=== PATIENT | male | born 1950 | race African-American/Black ===

== ENCOUNTER 2022-05-14 12:14 | Emergency (ER) | payer MEDICAID, MEDICARE ==
[~2022-05-14] VITALS: Ht 175.3 cm; Wt 118.0 kg
[2022-05-14 12:54] LABS: BG CARBOXYHEMOGLOBIN 0.5 % (0.5-1.5); BG DEOXYHEMOGLOBIN 6.8 % (0.0-5.0); BG FRACTION INSPIRED OXYGEN 21; BG HCO3 ACT 22.4 mmol/L (22.0-26.0); BG METHEMOGLOBIN 0.3 % (0.0-1.5); BG OXYGEN SATURATION 93.1 % (92.0-98.5); BG OXYHEMOGLOBIN 92.4 % (94.0-97.0); BG PCO2 37.3 mmHg (35.0-45.0); BG PH 7.396 (7.350-7.450); BG PO2 67.4 mmHg (75.0-100.0); BG SAMPLE SITE RIGHT RADIAL; BG TOTAL HEMOGLOBIN 16.7 g/dL (12.0-18.0); BG VENT MODE ROOM AIR
[2022-05-14 13:34] LABS: BASOPHILS % 0.4 % (0.0-2.0); EOSINOPHILS % 1.3 % (0.0-5.0); HEMOGLOBIN. 15.9 g/dL (14.0-18.0); LYMPHOCYTES % 32.6 % (20.0-50.0); MEAN CORPUSCULAR HEMOGLOBIN 29.6 pg (28.0-32.0); MEAN PLATELET VOLUME 8.2 fl (7.4-10.4); MONOCYTES % 9.2 % (2.0-8.0); NEUTROPHILS % 56.5 % (40.0-76.0); PLATELET 281 x1000/uL (130-400); RED BLOOD CELL COUNT 5.39 mill/uL (4.7-6.1); RED CELL DISTRIBUTION WIDTH 14.2 % (11.6-14.6)
[2022-05-14 13:43] LABS: CHLORIDE 108 mEq/L (98-107)
[2022-05-14 16:41] VITALS: BP 156/95
== END 2022-05-14 16:44 | disposition home or self-care (01) ==
LOC: ER 12:14
DX: T65.91XA Toxic effect of unspecified substance, accidental (unintentional), initial encounter (principal); I10 Essential (primary) hypertension; Y92.9 Unspecified place or not applicable
CPT/HCPCS: 36415; 36600; 71045; 80053; 82375; 82805; 83880; 85025; 93005; 99285

== ENCOUNTER 2022-07-07 20:05 | Emergency (ER) | payer MEDICARE, MEDICAID ==
[~2022-07-07] VITALS: Ht 182.9 cm; Wt 91.0 kg
[2022-07-07 21:01] LABS: CHLORIDE 109 mEq/L (98-107)
[2022-07-07 21:10] LABS: BASOPHILS % 0.5 % (0.0-2.0); EOSINOPHILS % 1.1 % (0.0-5.0); HEMATOCRIT. 43.6 % (42.0-52.0); HEMOGLOBIN. 14.6 g/dL (14.0-18.0); LYMPHOCYTES % 30.5 % (20.0-50.0); MEAN CORPUSCULAR HEMOGLOBIN 29.6 pg (28.0-32.0); MEAN CORPUSCULAR VOLUME 88.4 fL (80.0-94.0); MEAN PLATELET VOLUME 7.6 fl (7.4-10.4); MONOCYTES % 10.5 % (2.0-8.0); NEUTROPHILS % 57.4 % (40.0-76.0); PLATELET 299 x1000/uL (130-400); RED BLOOD CELL COUNT 4.93 mill/uL (4.7-6.1); RED CELL DISTRIBUTION WIDTH 14.3 % (11.6-14.6)
[2022-07-07 21:17] LABS: CREATINE KINASE 133 IU/L (39-308); ETHANOL BLOOD < 10 mg/dL
[2022-07-07 23:51] LABS: CLARITY URINE CLEAR (CLEAR); COLOR URINE DARK YELLOW (YELLOW); KETONES URINE TRACE (NEGATIVE); LEUKOCYTE ESTERASE URINE NEGATIVE (NEGATIVE); NITRITE URINE NEGATIVE (NEGATIVE); OCCULT BLOOD URINE NEGATIVE (NEGATIVE); PROTEIN URINE TRACE (NEGATIVE); SPECIFIC GRAVITY URINE 1.028 (1.005-1.030)
[2022-07-08 00:04] LABS: *AMPHETAMINES SCREEN URINE NEGATIVE (NEGATIVE); *BARBITURATES SCREEN URINE NEGATIVE (NEGATIVE); *BENZODIAZEPINES SCREEN URINE NEGATIVE (NEGATIVE); *COCAINE SCREEN URINE NEGATIVE (NEGATIVE); CANNABINOID URINE SCREEN NEGATIVE (NEGATIVE); METHADONE URINE SCREEN NEGATIVE (NEGATIVE); OPIATES URINE SCREEN NEGATIVE (NEGATIVE); PHENCYCLIDINE URINE SCREEN NEGATIVE (NEGATIVE)
[2022-07-08] MEDS ORDERED: ACETAMINOPHEN 325MG TABLET PO ONE (00:15)
[2022-07-08 00:38] VITALS: BP 138/87
== END 2022-07-08 01:14 | disposition home or self-care (01) ==
LOC: ER 20:05
DX: R53.1 Weakness (principal); E11.9 Type 2 diabetes mellitus without complications; I10 Essential (primary) hypertension
CPT/HCPCS: 36415; 71045; 80053; 80305; 80307; 80320; 80329; 81003; 82140; 82550; 82962; 83605; 84443; 84484; 85025; 93005; 99285; G0480

== ENCOUNTER 2024-01-22 17:46 | Inpatient (IN) | payer MEDICARE, MEDICAID ==
[~2024-01-22] VITALS: Ht 172.7 cm; Wt 102.9 kg
[~2024-01-22 17:46] MED LIST: ASPI-1406 PO; ATOR40TA70 PO; CARV25TA47 PO; CELE-146 PO; DARU1TAB PO; DOLU50TA PO; ERGO1250 PO; GABA-1180 PO; GLIM2TAB30 PO; TAMS-11 PO; TRELEGY 200-62.5-25 PO
[2024-01-22] MEDS ORDERED: BENZONATATE 100MG CAPSULE PO PRN (18:15)
[2024-01-22] MEDS ORDERED: DEXTROSE 50% WATER 50ML SYRINGE IV PRN (18:15)
[2024-01-22] MEDS ORDERED: CLONIDINE 0.1MG TABLET PO PRN (18:15)
[2024-01-22] MEDS ORDERED: MAGNESIUM/ALUMINUM HYDROXIDE/SIMETHICONE 30ML UDC PO PRN (18:15)
[2024-01-22] MEDS ORDERED: GUAIFENESIN 200MG 200 MG TABLET PO PRN (18:15)
[2024-01-22] MEDS ORDERED: ONDANSETRON HCL 4MG/2ML INJ IV PRN (18:15)
[2024-01-22 18:42] VITALS: PULSE 78; RESP 18; TEMP 36.22512; O2SAT 98
[2024-01-22 19:00] VITALS: BP 98/74; PULSE 86; RESP 18; TEMP 36.7516
[2024-01-22 20:00] VITALS: BP 98/74; PULSE 86; RESP 18; TEMP 36.72516; O2SAT 99
[2024-01-22] MEDS: INSULIN LISPRO 100 UNITS/ML SUBCUT SCH (21:00)
[2024-01-22] MEDS: BLOOD SUGAR DIAGNOSTIC STRIP TEST SCH (21:00)
[2024-01-22] MEDS: CARVEDILOL 12.5MG TABLET PO SCH (21:00)
[2024-01-22] MEDS: DOCUSATE SODIUM 100MG CAPSULE PO SCH (22:15)
[2024-01-22] MEDS: ATORVASTATIN CALCIUM 40MG TABLET PO SCH (22:16)
[2024-01-22] MEDS: GABAPENTIN 300MG CAPSULE PO SCH (22:16)
[2024-01-22] MEDS: FAMOTIDINE 20MG TABLET PO SCH (22:16)
[2024-01-23 08:00] VITALS: BP 101/74; PULSE 85; RESP 20; TEMP 36.6696; O2SAT 95
[2024-01-23 08:18] LABS: BASOPHILS % 0.9 % (0.0-2.0); EOSINOPHILS % 2.7 % (0.0-5.0); HEMATOCRIT. 43.9 % (42.0-52.0); HEMOGLOBIN. 14.3 g/dL (14.0-18.0); LYMPHOCYTES % 32.7 % (20.0-50.0); MEAN CORPUSCULAR HEMOGLOBIN 29.4 pg (28.0-32.0); MEAN CORPUSCULAR HGB CONC 32.5 g/dL (31.0-37.0); MEAN CORPUSCULAR VOLUME 90.5 fL (80.0-94.0); MEAN PLATELET VOLUME 7.6 fl (7.4-10.4); MONOCYTES % 14.7 % (2.0-8.0); PLATELET 264 x1000/uL (130-400); RED BLOOD CELL COUNT 4.85 mill/uL (4.7-6.1); RED CELL DISTRIBUTION WIDTH 14.1 % (11.6-14.6); WHITE BLOOD COUNT 7.6 x1000/uL (4.5-11.0)
[2024-01-23 08:21] LABS: CHLORIDE 107 mEq/L (98-107); POTASSIUM 4.2 mEq/L (3.5-5.1); SODIUM 139 mEq/L (136-145)
[2024-01-23 08:24] LABS: CALCIUM 9.4 mg/dL (8.7-10.4); CARBON DIOXIDE 25 mEq/L (21-32)
[2024-01-23 08:29] LABS: CREATININE 1.1 mg/dL (0.6-1.3); GLUCOSE 114 mg/dL (70-105)
[2024-01-23 08:30] LABS: ALANINE AMINOTRANSFERASE 58 IU/L (10-49); ASPARTATE AMINOTRANSFERASE 36 IU/L (<34); UREA NITROGEN BLOOD 14 mg/dL (9-23)
[2024-01-23 08:32] LABS: BILIRUBIN TOTAL 0.5 mg/dL (0.1-1.0); PREALBUMIN 15.2 mg/dl (10.0-40.0); PROTEIN TOTAL 7.1 g/dL (6.0-8.3)
[2024-01-23] MEDS: ASPIRIN 81MG TABLET PO SCH (08:42)
[2024-01-23] MEDS: MAGNESIUM OXIDE 400MG TABLET PO SCH (08:44)
[2024-01-23] MEDS: ENOXAPARIN 40MG/0.4ML SYR SUBCUT SCH (08:44)
[2024-01-23] MEDS: LACTULOSE 20G/30ML UDC PO SCH (16:39)
[2024-01-23 19:54] VITALS: BP 119/78; PULSE 91; RESP 18; TEMP 36.22512; O2SAT 97
[2024-01-24 06:00] LABS: HEMATOCRIT. 42.9 % (42.0-52.0); HEMOGLOBIN. 14.3 g/dL (14.0-18.0); MEAN CORPUSCULAR HEMOGLOBIN 30.4 pg (28.0-32.0); MEAN CORPUSCULAR HGB CONC 33.4 g/dL (31.0-37.0); MEAN PLATELET VOLUME 7.9 fl (7.4-10.4); PLATELET 228 x1000/uL (130-400); RED BLOOD CELL COUNT 4.71 mill/uL (4.7-6.1); RED CELL DISTRIBUTION WIDTH 14.2 % (11.6-14.6); WHITE BLOOD COUNT 6.3 x1000/uL (4.5-11.0)
[2024-01-24 06:16] LABS: DIFFERENTIAL COMMENT 1
[2024-01-24 06:21] LABS: AMMONIA < 17 uMol/L (<32)
[2024-01-24 06:33] LABS: CHLORIDE 108 mEq/L (98-107); SODIUM 140 mEq/L (136-145)
[2024-01-24 06:34] LABS: CALCIUM 9.4 mg/dL (8.7-10.4); CARBON DIOXIDE 23 mEq/L (21-32)
[2024-01-24 06:39] LABS: CREATININE 1.1 mg/dL (0.6-1.3); GLUCOSE 105 mg/dL (70-105); IRON 82 ug/dL (65-175); UREA NITROGEN BLOOD 12 mg/dL (9-23)
[2024-01-24 06:41] LABS: ALANINE AMINOTRANSFERASE 58 IU/L (10-49); ASPARTATE AMINOTRANSFERASE 36 IU/L (<34); BILIRUBIN TOTAL 0.7 mg/dL (0.1-1.0); THYROID STIMULATING HORMONE 0.76 uIU/mL (0.55-4.78); TOTAL IRON BINDING CAPACITY 257 ug/dl (250-425)
[2024-01-24 06:42] LABS: PROTEIN TOTAL 7.1 g/dL (6.0-8.3)
[2024-01-24 06:43] LABS: FERRITIN 306 ng/mL (22-322); FOLIC ACID (FOLATE) SERUM 7.77 ng/mL (>5.38); VITAMIN B12 SERUM 914 pg/mL (211-911)
[2024-01-24 08:00] VITALS: BP 103/64; PULSE 91; RESP 20; TEMP 36.78072; O2SAT 96
[2024-01-24 16:23] LABS: PLATELET ESTIMATE NORMAL
[2024-01-24 20:00] VITALS: BP 102/77; PULSE 93; RESP 20; TEMP 36.78072; O2SAT 99
[2024-01-24] MEDS: CARVEDILOL 3.125 MG TABLET PO SCH (20:38)
[2024-01-25 08:00] VITALS: BP 105/82; PULSE 95; RESP 20; TEMP 37.05852; O2SAT 96
[2024-01-25] MEDS: FUROSEMIDE 40MG TABLET PO SCH (08:42)
[2024-01-25] MEDS: POTASSIUM CHLORIDE 10MEQ TABLET SR PO SCH (08:43)
[2024-01-25 12:20] LABS: HEMATOCRIT. 45.9 % (42.0-52.0); HEMOGLOBIN. 15.5 g/dL (14.0-18.0); MEAN CORPUSCULAR HEMOGLOBIN 30.8 pg (28.0-32.0); MEAN CORPUSCULAR HGB CONC 33.7 g/dL (31.0-37.0); MEAN CORPUSCULAR VOLUME 91.3 fL (80.0-94.0); MEAN PLATELET VOLUME 7.8 fl (7.4-10.4); PLATELET 239 x1000/uL (130-400); RED BLOOD CELL COUNT 5.03 mill/uL (4.7-6.1); RED CELL DISTRIBUTION WIDTH 13.8 % (11.6-14.6); WHITE BLOOD COUNT 5.5 x1000/uL (4.5-11.0)
[2024-01-25 12:23] LABS: DIFFERENTIAL COMMENT 1
[2024-01-25 12:35] LABS: CHLORIDE 106 mEq/L (98-107); POTASSIUM 4.2 mEq/L (3.5-5.1); SODIUM 138 mEq/L (136-145)
[2024-01-25 12:36] LABS: CARBON DIOXIDE 23 mEq/L (21-32)
[2024-01-25 12:37] LABS: CALCIUM 9.9 mg/dL (8.7-10.4)
[2024-01-25 12:41] LABS: CREATININE 1.1 mg/dL (0.6-1.3)
[2024-01-25 12:42] LABS: GLUCOSE 91 mg/dL (70-105); UREA NITROGEN BLOOD 13 mg/dL (9-23)
[2024-01-25] MEDS ORDERED: *PATIENT'S OWN MEDICATION STORAGE XX SCH (18:15)
[2024-01-25 20:00] VITALS: BP 108/73; PULSE 82; RESP 18; TEMP 37.00296; O2SAT 100
[2024-01-26 07:42] VITALS: BP 109/75; PULSE 97; PULSE 99; RESP 20; TEMP 36.00288; O2SAT 97
[2024-01-26] MEDS ORDERED: NON FORMULARY MED PO SCH ×2 (09:00)
[2024-01-26] MEDS: PREZCOBIX PO SCH (09:06)
[2024-01-26 11:17] LABS: HEMATOCRIT. 44.4 % (42.0-52.0); HEMOGLOBIN. 14.2 g/dL (14.0-18.0); MEAN CORPUSCULAR HEMOGLOBIN 29.3 pg (28.0-32.0); MEAN CORPUSCULAR HGB CONC 31.9 g/dL (31.0-37.0); MEAN CORPUSCULAR VOLUME 91.7 fL (80.0-94.0); MEAN PLATELET VOLUME 7.9 fl (7.4-10.4); PLATELET 230 x1000/uL (130-400); RED BLOOD CELL COUNT 4.84 mill/uL (4.7-6.1); RED CELL DISTRIBUTION WIDTH 14.1 % (11.6-14.6); WHITE BLOOD COUNT 4.6 x1000/uL (4.5-11.0)
[2024-01-26 11:28] LABS: DIFFERENTIAL COMMENT 1
[2024-01-26 12:03] LABS: CHLORIDE 105 mEq/L (98-107); POTASSIUM 3.9 mEq/L (3.5-5.1); SODIUM 138 mEq/L (136-145)
[2024-01-26 12:04] LABS: CARBON DIOXIDE 24 mEq/L (21-32)
[2024-01-26 12:05] LABS: CALCIUM 9.2 mg/dL (8.7-10.4)
[2024-01-26 12:09] LABS: CREATININE 1.1 mg/dL (0.6-1.3); GLUCOSE 111 mg/dL (70-105); UREA NITROGEN BLOOD 16 mg/dL (9-23)
[2024-01-26 17:49] LABS: PLATELET ESTIMATE NORMAL
[2024-01-26 20:00] VITALS: BP 116/57; PULSE 106; RESP 18; TEMP 36.89184; O2SAT 97
[2024-01-26 21:39] LABS: PLATELET ESTIMATE NORMAL
[2024-01-27 08:00] VITALS: BP 108/68; PULSE 88; RESP 20; TEMP 36.114; O2SAT 97
[2024-01-27 08:03] LABS: HEMATOCRIT. 44.6 % (42.0-52.0); HEMOGLOBIN. 14.4 g/dL (14.0-18.0); MEAN CORPUSCULAR HGB CONC 32.4 g/dL (31.0-37.0); MEAN CORPUSCULAR VOLUME 89.6 fL (80.0-94.0); MEAN PLATELET VOLUME 7.9 fl (7.4-10.4); PLATELET 235 x1000/uL (130-400); RED BLOOD CELL COUNT 4.97 mill/uL (4.7-6.1); WHITE BLOOD COUNT 4.5 x1000/uL (4.5-11.0)
[2024-01-27 08:20] LABS: CHLORIDE 106 mEq/L (98-107); POTASSIUM 3.7 mEq/L (3.5-5.1); SODIUM 137 mEq/L (136-145)
[2024-01-27 08:21] LABS: CARBON DIOXIDE 20 mEq/L (21-32)
[2024-01-27 08:26] LABS: CREATININE 1.2 mg/dL (0.6-1.3); GLUCOSE 115 mg/dL (70-105); UREA NITROGEN BLOOD 12 mg/dL (9-23)
[2024-01-27 08:28] LABS: PHOSPHORUS 3.8 mg/dL (2.5-4.9)
[2024-01-27 09:04] LABS: DIFFERENTIAL COMMENT 1
[2024-01-27] MEDS: ACETAMINOPHEN 325MG TABLET PO PRN (15:10)
[2024-01-27 17:43] LABS: ATYPICAL LYMPHOCYTES 7; PLATELET ESTIMATE NORMAL
[2024-01-27 20:00] VITALS: BP 106/57; PULSE 79; RESP 18; TEMP 37.00296; O2SAT 95
[2024-01-27] MEDS: LACTULOSE 20G/30ML UDC PO SCH (20:00)
[2024-01-28 08:00] VITALS: BP 104/56; PULSE 76; RESP 19; TEMP 36.3918; O2SAT 96
[2024-01-28 08:35] LABS: CHLORIDE 106 mEq/L (98-107); POTASSIUM 3.7 mEq/L (3.5-5.1); SODIUM 139 mEq/L (136-145)
[2024-01-28 08:36] LABS: CARBON DIOXIDE 26 mEq/L (21-32)
[2024-01-28 08:41] LABS: CREATININE 1.1 mg/dL (0.6-1.3); GLUCOSE 98 mg/dL (70-105)
[2024-01-28 08:42] LABS: UREA NITROGEN BLOOD 14 mg/dL (9-23)
[2024-01-28 09:43] LABS: HEMOGLOBIN. 13.9 g/dL (14.0-18.0); MEAN CORPUSCULAR HEMOGLOBIN 30.3 pg (28.0-32.0); MEAN CORPUSCULAR HGB CONC 33.8 g/dL (31.0-37.0); MEAN CORPUSCULAR VOLUME 89.6 fL (80.0-94.0); MEAN PLATELET VOLUME 8.3 fl (7.4-10.4); PLATELET 215 x1000/uL (130-400); RED BLOOD CELL COUNT 4.57 mill/uL (4.7-6.1); RED CELL DISTRIBUTION WIDTH 14.1 % (11.6-14.6); WHITE BLOOD COUNT 4.3 x1000/uL (4.5-11.0)
[2024-01-28 09:54] LABS: DIFFERENTIAL COMMENT 1
[2024-01-28] MEDS: ERGOCALCIFEROL 50000UNITS CAPSULE PO SCH (16:10)
[2024-01-28 17:09] LABS: PLATELET ESTIMATE NORMAL
[2024-01-28 19:45] VITALS: BP 116/83; PULSE 98; RESP 20; TEMP 36.78072; O2SAT 100
[2024-01-29 08:00] VITALS: BP 91/51; PULSE 75; RESP 18; TEMP 35.94732; O2SAT 95
[2024-01-29 20:00] VITALS: BP 111/58; PULSE 85; RESP 19; TEMP 36.3918; O2SAT 95
[2024-01-30 07:55] LABS: CARBON DIOXIDE 22 mEq/L (21-32); CHLORIDE 107 mEq/L (98-107); SODIUM 139 mEq/L (136-145)
[2024-01-30 08:00] VITALS: BP 105/57; PULSE 70; RESP 18; TEMP 37.05852; O2SAT 95
[2024-01-30 08:01] LABS: CREATININE 1.3 mg/dL (0.6-1.3); GLUCOSE 99 mg/dL (70-105); UREA NITROGEN BLOOD 11 mg/dL (9-23)
[2024-01-30 08:07] LABS: BASOPHILS % 0.7 % (0.0-2.0); EOSINOPHILS % 1.9 % (0.0-5.0); HEMATOCRIT. 41.5 % (42.0-52.0); HEMOGLOBIN. 13.5 g/dL (14.0-18.0); LYMPHOCYTES % 56.1 % (20.0-50.0); MEAN CORPUSCULAR HEMOGLOBIN 29.1 pg (28.0-32.0); MEAN CORPUSCULAR HGB CONC 32.5 g/dL (31.0-37.0); MEAN CORPUSCULAR VOLUME 89.8 fL (80.0-94.0); MONOCYTES % 11.3 % (2.0-8.0); PLATELET 230 x1000/uL (130-400); RED BLOOD CELL COUNT 4.62 mill/uL (4.7-6.1); WHITE BLOOD COUNT 5.7 x1000/uL (4.5-11.0)
[2024-01-30 20:00] VITALS: BP 118/88; PULSE 93; RESP 18; TEMP 36.28068; O2SAT 98
[2024-01-31 08:00] VITALS: BP 115/73; PULSE 78; RESP 20; TEMP 36.22512; O2SAT 98
[2024-01-31 10:42] VITALS: BP 115/73; PULSE 78; TEMP 97.2; O2SAT 98
== END 2024-01-31 13:50 | disposition home health service (06) | DRG 975 ==
PROVIDERS: ADMIT Physical Medicine & Rehabilitation Spinal Cord Injury Medicine; ATTEND Internal Medicine
DX: U07.1 COVID-19 (principal); G72.81 Critical illness myopathy; B20 Human immunodeficiency virus [HIV] disease; N17.9 Acute kidney failure, unspecified; I50.22 Chronic systolic (congestive) heart failure; A41.89 Other specified sepsis; J12.82 Pneumonia due to coronavirus disease 2019; G47.33 Obstructive sleep apnea (adult) (pediatric); E78.5 Hyperlipidemia, unspecified; E55.9 Vitamin D deficiency, unspecified; I34.0 Nonrheumatic mitral (valve) insufficiency; F03.90 Unspecified dementia, unspecified severity, without behavioral disturbance, psychotic disturbance, mood disturbance, and anxiety; R53.81 Other malaise; R26.9 Unspecified abnormalities of gait and mobility; M79.604 Pain in right leg; M79.605 Pain in left leg; M21.6X2 Other acquired deformities of left foot; E11.40 Type 2 diabetes mellitus with diabetic neuropathy, unspecified; G89.29 Other chronic pain; I11.0 Hypertensive heart disease with heart failure; N40.0 Benign prostatic hyperplasia without lower urinary tract symptoms; Z91.81 History of falling; Z87.01 Personal history of pneumonia (recurrent); Z87.891 Personal history of nicotine dependence; Z79.899 Other long term (current) drug therapy; Z68.34 Body mass index [BMI] 34.0-34.9, adult
CPT/HCPCS: 36415; 80048; 80053; 82140; 82306; 82607; 82728; 82746; 82962; 83036; 83540; 83550; 83735; 84100; 84134; 84443; 85025; 93306; 97110; 97116; 97150; 97162; 97166; 97530; 97535; 97542; J1650; J1815